=== PATIENT | female | born 1950 | race Caucasian/White ===

== ENCOUNTER → 2016-05-23 | Outpatient (CLI) | payer MEDICARE, BC ==
--- NOTE | 2016-05-23 17:56 | CARD ---
APPROVED REPORT EXAM: Two-dimensional and M-mode echocardiogram with Doppler and color Doppler. Other Information Quality : Good INDICATION Palpitations Hypertension/HCVD 2D DIMENSIONS Left Atrium(2D)2.8 (1.6-4.0cm)IVSd0.8 (0.7-1.1cm) Aortic Root(2D)2.3 (2.0-3.7cm)LVDd3.8 (3.9-5.9cm) LVOT Diameter2.0 (1.8-2.4cm)PWd0.8 (0.7-1.1cm) LVDs2.6 (2.5-4.0cm)FS (%) 30.4 % SV36.1 mlLVEF(%)60.0 (>50%) Aortic Valve AoV Peak Dann.146.9cm/sAoV VTI27.8cm AO Peak GR.8.6mmHgLVOT Peak Dann.152.2cm/s AO Mean GR.5mmHgAVA (VMAX)3.10cm2 ADOLFO (VTI)3.50cm2 Mitral Valve MV E Koikdeyj81.6cm/sMV DECEL HMFU380di MV A Sfsjvmac749.0cm/sE/A Ratio0.7 Tricuspid Valve TR P. Ntgusmpv414zd/sRAP PKZKVZDG6rmPp TR Peak Gr.11suLjOPAD82anSq Pulmonary Vein S1 Ygtnzklq84.0cm/sD2 Okegnzmt22.1cm/s PVa hnyzziwu100znhg LEFT VENTRICLE The left ventricle is normal size. There is normal left ventricular wall thickness. The left ventricu lar systolic function is normal and the ejection fraction is within normal range. The Ejection Fracti on is 60%. There is normal LV segmental wall motion. Transmitral Doppler flow pattern is Grade I-abno rmal relaxation pattern. RIGHT VENTRICLE The right ventricle is normal size. The right ventricular systolic function is normal. ATRIA The left atrium size is normal. The right atrium size is normal. The interatrial septum is intact wit h no evidence for an atrial septal defect or patent foramen ovale as noted on 2-D or Doppler imaging. AORTIC VALVE The aortic valve is calcified but opens well. Doppler and Color Flow revealed a trace of aortic regur gitation. There is no significant aortic valvular stenosis. MITRAL VALVE The mitral valve is calcified but opens well. There is no evidence of mitral valve prolapse. There is no mitral valve stenosis. Doppler and Color-flow revealed trace mitral regurgitation. TRICUSPID VALVE The tricuspid valve is normal in structure Doppler and Color Flow revealed trace to mild tricuspid re gurgitation. The PA pressure was estimated at 33 mmHg. There is no tricuspid valve stenosis. PULMONIC VALVE The pulmonary valve is normal in structure and function. Doppler and Color Flow revealed no pulmonic valvular regurgitation. There is no pulmonic valvular stenosis. GREAT VESSELS The aortic root is normal in size. The ascending aorta is normal in size. The IVC is normal in size a nd collapses >50% with inspiration. PERICARDIAL EFFUSION There is no evidence of significant pericardial effusion. Critical Notification Critical Value: No <Conclusion> The left ventricular systolic function is normal and the ejection fraction is within normal range. The Ejection Fraction is 60%. Transmitral Doppler flow pattern is Grade I-abnormal relaxation pattern. The left atrium size is normal. The right atrium size is normal. The aortic valve is calcified but opens well. Doppler and Color Flow revealed a trace of aortic regurgitation. Doppler and Color-flow revealed trace mitral regurgitation. The mitral valve is calcified but opens well. Doppler and Color Flow revealed trace to mild tricuspid regurgitation. The PA pressure was estimated at 33 mmHg. The pulmonary valve is normal in structure and function. There is no evidence of significant pericardial effusion.
== END | disposition home or self-care (01) ==
LOC: ECHO 10:58
PROVIDERS: ATTEND Internal Medicine Cardiovascular Disease
DX: I10 Essential (primary) hypertension (principal); R00.2 Palpitations; Z82.49 Family history of ischemic heart disease and other diseases of the circulatory system
CPT/HCPCS: 93306

== ENCOUNTER → 2016-10-05 | Outpatient (CLI) | payer MEDICARE, BC ==
--- NOTE | 2016-10-06 07:26 | RAD ---
Chest, 2 views, 10/05/2016: History: Cough and bronchitis Comparison is made to a study from 09/21/2003. The heart size and pulmonary vascularity are normal. No pulmonary infiltrates are seen. There is no evidence of pleural fluid. IMPRESSION: No acute cardiopulmonary abnormality is detected.
== END | disposition home or self-care (01) ==
LOC: RAD 17:41
PROVIDERS: ATTEND Family Medicine
DX: R05 Cough (principal)
CPT/HCPCS: 71020

== ENCOUNTER → 2019-03-07 | Day surgery (SDC) | payer MEDICARE ==
[~2019-03-07] MED LIST: ALEN70TA6 PO; ASPI325T8 PO; ATOR20TA58 PO; IV RINGERS,LACTATED 1000ML 1,000 ML IV ONE; LEVO100T PO; LISI-338 PO; METF500T16 PO; PROPOFOL 20 ML IV ONE
[2019-03-07 09:35] VITALS: BP 121/61
--- NOTE | 2019-03-07 11:26 | CONS ---
DATE OF CONSULTATION: 03/07/2019 REFERRING PHYSICIAN: Krish Tom MD REASON: Positive Cologuard. HISTORY OF PRESENT ILLNESS: The patient is a 68-year-old female with past medical history significant for osteoporosis, hyperlipidemia, hypothyroidism and diabetes, seen for colonoscopy. Bowel habits have been regular without diarrhea or constipation. Family history is negative for colon cancer. Recent Cologuard was positive. Weight and appetite are stable and she has no additional complaints. PAST MEDICAL HISTORY: Hypothyroidism, diabetes, hyperlipidemia, osteoporosis. ALLERGIES: CEPHALOSPORINS. MEDICATIONS: Include Fosamax, aspirin, atorvastatin, levothyroxine, lisinopril, metformin. FAMILY AND SOCIAL HISTORY: Significant for hypertension with mother and grandfather, MIs with her father and grandmother. SOCIAL HISTORY: She is a former smoker, social drinker. PAST SURGICAL HISTORY: Significant for eye surgery, hysterectomy, bowel resection, thyroid surgery and tonsillectomy. REVIEW OF SYSTEMS: As per records. PHYSICAL EXAMINATION: GENERAL: Reveals a well-nourished, well-developed female. VITAL SIGNS: Temperature 97.2, pulse 86, respirations 20. HEENT: Normocephalic, atraumatic head. Pupils and extraocular muscles are not tested. Sclerae anicteric. NECK: Supple. LUNGS: Clear. CARDIOVASCULAR: Reveals an S1, S2 without S3, S4 or appreciable murmur. ABDOMEN: Reveals a soft abdomen, normal bowel sounds, without appreciable hepatosplenomegaly. EXTREMITIES: Reveals no cyanosis, clubbing or edema. IMPRESSION: Positive Cologuard. Colonoscopy is recommended at this time. Risks and benefits of procedure including risk of hemorrhage and perforation during the operation have been discussed. The patient is willing to proceed. KIZZY NEAL MD DR: TOMAS/grace JOB#: [id number] / [id number]
== END ==
LOC: SURG 07:33
PROVIDERS: ATTEND Internal Medicine Gastroenterology
DX: R19.5 Other fecal abnormalities (principal); K57.30 Diverticulosis of large intestine without perforation or abscess without bleeding; K64.0 First degree hemorrhoids; E78.00 Pure hypercholesterolemia, unspecified; E03.9 Hypothyroidism, unspecified; E11.9 Type 2 diabetes mellitus without complications; M81.0 Age-related osteoporosis without current pathological fracture; Z88.8 Allergy status to other drugs, medicaments and biological substances; Z79.82 Long term (current) use of aspirin; Z87.891 Personal history of nicotine dependence; Z72.89 Other problems related to lifestyle; Z90.710 Acquired absence of both cervix and uterus; Z90.49 Acquired absence of other specified parts of digestive tract; Z98.890 Other specified postprocedural states; Z79.84 Long term (current) use of oral hypoglycemic drugs
CPT/HCPCS: 45378; J2704

== ENCOUNTER → 2020-05-03 | Outpatient (CLI) | payer MEDICARE ==
[2019-03-07 09:35] VITALS: BP 121/61
[~2020-05-03] MED LIST changes: -ALEN70TA6 PO; +ALEN70TA60 PO; -IV RINGERS,LACTATED 1000ML 1,000 ML IV ONE; +LEVO-101 PO; -LEVO100T PO; -PROPOFOL 20 ML IV ONE
--- NOTE | 2020-05-03 16:34 | KCIC ---
EXAMINATION: XR RT TIBIA+FIBULA CLINICAL HISTORY: PERSISTENT PAIN/SWELLING RT DISTAL TIBFIB, FELL 3 WEEKS AGO HIT MID ANTERIOR TIBIA TECHNIQUE: XR RT TIBIA+FIBULA Number of Images/Views: 2 COMPARISON: None FINDINGS: No acute fracture. Limited evaluation of the knee and ankle unremarkable. Mild subcutaneous edema in the distal leg with more focal soft tissue prominence/edema along the anterior mid tibia. IMPRESSION: No acute osseous abnormality right tibia or fibula. Electronically signed by: Galo Worley DO (05/03/2020 4:31 PM) [id number]
== END ==
LOC: KCIC 16:00
PROVIDERS: ATTEND Family Medicine
DX: R22.42 Localized swelling, mass and lump, left lower limb (principal); M79.604 Pain in right leg
CPT/HCPCS: 73590